=== PATIENT | female | born 1950 | race Caucasian/White ===

== ENCOUNTER 2021-01-19 12:44 | Emergency (ER) | payer OTHER, MEDICAID ==
[~2021-01-19] VITALS: Ht 149.9 cm; Wt 48.1 kg
[~2021-01-19 12:44] MED LIST: ADVAIRDISKUS; CELEXA; CHLORHEXIDINE; FENTANYL 1100 MCG/HR TP; HYDROXYCHLOROQUINE; LASIX 40 MG TAB40 M1; MORPHINE SULFAT30 M1 PO; NASONEX17 GM NS; NEURONTIN 400400 M1 PO; NEXIUM40 MG; OPIUM10 MG/1 ML PO; PILOCARPINE HCL PO; PREDNISONE 5 MG5 M1 PO; PROAIR HFA8.5 GM IH; VITAMIN D 5050000 I1; VOLTAREN GEL 1100 G1 TOP; ZYRTEC; [UNRECOGNIZED DRUG - OTHER]; [UNRECOGNIZED DRUG - OTHER]
[2021-01-19] MEDS ORDERED: PERCOCET PO (15:02)
[2021-01-19 15:13] VITALS: BP 134/61
== END 2021-01-19 15:14 | disposition home or self-care (01) ==
LOC: M.ERS 12:44
DX: M48.54XA Collapsed vertebra, not elsewhere classified, thoracic region, initial encounter for fracture (principal); M19.90 Unspecified osteoarthritis, unspecified site; Z79.899 Other long term (current) drug therapy; Z88.1 Allergy status to other antibiotic agents; Z88.8 Allergy status to other drugs, medicaments and biological substances